=== PATIENT | male | born 1960 | race Caucasian/White ===

== ENCOUNTER 2017-03-17 13:13 | Emergency (ER) | payer SELFPAY ==
[2017-03-17 13:24] VITALS: BP 146/83
--- NOTE | 2017-03-17 13:32 | UC ---
Lower Extremity/Ankle HPI <Stephany Olivares - Last Filed: 03/17/17 13:40> - HPI Summary HPI Summary: 56 YEAR OLD MALE PRESENTS WITH COMPLAINS OF RIGHT CALF PAIN/SWELLING/ECCHYMOSIS SECONDARY TO A FALL. - History of Current Complaint Hx Obtained From: Patient Onset/Duration: Sudden Onset Severity Initially: Moderate Severity Currently: Moderate Pain Scale Used: 0-10 Numeric - 5 Aggravating Factor(s): Standing Alleviating Factor(s): Rest, Elevation Able to Bear Weight: Yes <Danilo Pitts - Last Filed: 03/17/17 14:45> - History of Current Complaint Chief Complaint: UCLowerExtremity Stated Complaint: LEG INJURY Time Seen by Provider: 03/17/17 13:30 - Allergies/Home Medications Allergies/Adverse Reactions: Allergies Allergy/AdvReac Type Severity Reaction Status Date / Time Sulfa Antibiotics Allergy Hives Verified 03/17/17 13:25 Home Medications: Home Medications Gabapentin CAP(*) [Neurontin 300 CAP(*)] 300 mg PO BID 03/17/17 [History Confirmed 03/17/17] Ibuprofen [Advil] 200 mg PO Q6H PRN 03/17/17 [History Confirmed 03/17/17] Losartan TAB* [Cozaar TAB*] 50 mg PO DAILY 03/17/17 [History Confirmed 03/17/17] PMH/Surg Hx/FS Hx/Imm Hx Endocrine History: Other <Stephany Olivares - Last Filed: 03/17/17 13:40> Previously Healthy: Yes - Surgical History Surgical History: Yes Surgery Procedure, Year, and Place: Thyroglossyl duct removed 03/13 - Family History Known Family History: Positive: None - Social History Alcohol Use: Occasionally Substance Use Type: None Smoking Status (MU): Former Smoker <HongDanilo - Last Filed: 03/17/17 14:45> Review of Systems Constitutional: Negative Skin: Negative Eyes: Negative ENT: Negative Respiratory: Negative Cardiovascular: Negative Gastrointestinal: Negative Genitourinary: Negative Motor: Negative Neurovascular: Negative Musculoskeletal: Calf Tenderness, Other: - RIGHT CALF SWELLING/ECCHYMOSIS Neurological: Negative Psychological: Negative All Other Systems Reviewed And Are Negative: Yes <Danilo Pitts - Last Filed: 03/17/17 14:45> Physical Exam Vital Signs: Initial Vital Signs Temp 99.0 F 03/17/17 13:18 Pulse 88 03/17/17 13:18 Resp 16 03/17/17 13:18 BP 146/83 03/17/17 13:18 Pulse Ox 97 03/17/17 13:18 <Stephany Olivares - Last Filed: 03/17/17 13:40> Triage Information Reviewed: Yes Vital Signs: Initial Vital Signs Temp 37.2 C 03/17/17 13:18 Pulse 88 03/17/17 13:18 Resp 16 03/17/17 13:18 BP 146/83 03/17/17 13:18 Pulse Ox 97 03/17/17 13:18 Eye Exam: Normal ENT Exam: Normal Dental Exam: Normal Neck exam: Normal Neck: Positive: 1 Respiratory Exam: Normal Cardiovascular Exam: Normal Abdominal Exam: Normal Musculoskeletal: Positive: Edema @, Other: - RIGHT CALF SWELLING/ECCHYMOSIS Neurological Exam: Normal Psychological Exam: Normal Skin Exam: Normal <Danilo Pitts - Last Filed: 03/17/17 14:45> Lower Extremity Course/Dx - Differential Dx/Diagnosis Provider Diagnoses: RIGHT CALF SWELLING/ECCHYMOSIS <Danilo Pitts - Last Filed: 03/17/17 14:45> Discharge <Stephany Olivares - Last Filed: 03/17/17 13:40> <Danilo Pitts - Last Filed: 03/17/17 14:45> - Discharge Plan Condition: Stable Disposition: HOME Patient Education Materials: Deep Venous Thrombosis (ED), Leg Edema (ED) Referrals: No Primary Care Phys,NOPCP [Primary Care Provider] - Additional Instructions: PLEASE GO TO ER TO RULE OUT DVT.
== END 2017-03-17 13:47 | disposition home or self-care (01) ==
LOC: UCEAST 13:13
DX: M79.89 Other specified soft tissue disorders (principal); R58 Hemorrhage, not elsewhere classified; Z88.2 Allergy status to sulfonamides; Z87.891 Personal history of nicotine dependence
CPT/HCPCS: 99201; G0463

== ENCOUNTER 2017-03-17 14:24 | Emergency (ER) | payer SELFPAY ==
[2017-03-17 20:45] LABS: Hematocrit 38 % (42-52); Hemoglobin 11.9 g/dl (14.0-18.0); Mean Corpuscular HGB Conc 32 g/dl (31-36); Mean Corpuscular Hemoglobin 25 pg (27-31); Mean Corpuscular Volume 78 fL (80-94); Mean Platelet Volume 9 um3 (7.4-10.4); Red Blood Count 4.84 10^6/ul (4.0-5.4); Red Cell Distribution Width 17 % (10.5-15); White Blood Count 10.7 10^3/ul (3.5-10.8)
[2017-03-17 21:00] LABS: Albumin 4.3 g/dL (3.2-5.2); BUN/Creatinine Ratio 19.8 (8-20); Calcium 9.1 mg/dL (8.6-10.3); EGFR African American 118.3 (>60); Globulin 2.7 g/dL (2-4); Potassium 3.9 mmol/L (3.5-5.0); Total Bilirubin 0.4 mg/dL (0.2-1.0)
--- NOTE | 2017-03-17 21:15 | RAD ---
INDICATION: Right lower leg injury. TECHNIQUE: 2 views of the right lower leg were obtained. FINDINGS: There is diffuse soft tissue swelling. No fracture is seen. There are several calcific densities which project along the posterior aspect of the knee possibly representing synovial osteochondromas. IMPRESSION: 1. SOFT TISSUE SWELLING, NO FRACTURE IS SEEN. 2. 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
--- NOTE | 2017-03-17 21:46 | RAD ---
INDICATION: Right lower extremity edema. COMPARISON: There are no prior studies available for comparison. TECHNIQUE: Multiple real-time, color flow and Doppler tracings of the right lower extremity were obtained. FINDINGS: The common femoral, femoral, profunda femoral and popliteal veins all demonstrate normal compressibility, augmentation with compression and phasic response with respiration. The posterior tibial and peroneal veins demonstrate normal compressibility and augmentation with compression. IMPRESSION: NO EVIDENCE FOR DEEP VENOUS THROMBOSIS.
--- NOTE | 2017-03-17 22:12 | ED ---
Lower Extremity - HPI Summary HPI Summary: 56M presents with right leg swelling since Friday. He fell onto leg as fell into ditch. He denies any pain, numbness or tingling. He is able to ambulate without difficulty. He states that the swelling and the hardness of it concerned him. he has been keeping his leg up as much as possible which seems to decrease the swelling. he normal wears compression socks but has not been wearing them. he denies being on blood thinners or history of blood clots. - History of Current Complaint Chief Complaint: EDExtremityLower Stated Complaint: RIGHT LEG PAIN COMMING FROM CC Time Seen by Provider: 03/17/17 20:16 Pain Intensity: 0 - Allergies/Home Medications Allergies/Adverse Reactions: Allergies Allergy/AdvReac Type Severity Reaction Status Date / Time Sulfa Antibiotics Allergy Hives Verified 03/17/17 13:25 PMH/Surg Hx/FS Hx/Imm Hx Endocrine/Hematology History: Denies: Hx Anticoagulant Therapy Cardiovascular History: Reports: Hx Hypertension - Surgical History Surgery Procedure, Year, and Place: Thyroglossyl duct removed 03/13 Infectious Disease History: No Infectious Disease History: Denies: Traveled Outside the [place] in Last 30 Days - Family History Known Family History: Negative: Blood Disorder - Social History Alcohol Use: Occasionally Substance Use Type: Reports: None Smoking Status (MU): Former Smoker Review of Systems Negative: Fever Negative: Chest Pain Positive: Edema - right leg Positive: Bruising All Other Systems Reviewed And Are Negative: Yes Physical Exam Triage Information Reviewed: Yes Vital Signs On Initial Exam: Initial Vitals Temp Pulse Resp BP Pulse Ox 98.4 F 82 20 176/97 98 03/17/17 14:40 03/17/17 14:40 03/17/17 14:40 03/17/17 14:40 03/17/17 14:40 Vital Signs Reviewed: Yes Appearance: Positive: Well-Appearing Skin: Positive: Other - ecchmosysis noted on right leg Head/Face: Positive: Normal Head/Face Inspection Eyes: Positive: Normal, Conjunctiva Clear Respiratory/Lung Sounds: Positive: Clear to Auscultation, Breath Sounds Present Cardiovascular: Positive: Normal, RRR Musculoskeletal: Positive: Strength/ROM Intact - right leg, Edema Right - leg with area of harder edema on anterior kapadia, Other - good pulses, sensation grossly intact, capilary refill<2 secs. Negative: Glenn Sign Right Diagnostics - Vital Signs Vital Signs Temp Pulse Resp BP Pulse Ox 03/17/17 20:06 99.3 F 74 16 170/90 97 03/17/17 19:12 99.3 F 67 16 170/90 97 03/17/17 17:43 98.8 F 70 20 176/107 97 03/17/17 16:01 98.1 F 82 20 173/75 96 03/17/17 14:40 98.4 F 82 20 176/97 98 - Laboratory Lab Results: Lab Results 03/17/17 03/17/17 03/17/17 Range/Units 20:35 20:35 20:35 WBC 10.7 (3.5-10.8) 10^3/ul RBC 4.84 (4.0-5.4) 10^6/ul Hgb 11.9 L (14.0-18.0) g/dl Hct 38 L (42-52) % MCV 78 L (80-94) fL MCH 25 L (27-31) pg MCHC 32 (31-36) g/dl RDW 17 H (10.5-15) % Plt Count 246 (150-450) 10^3/ul MPV 9 (7.4-10.4) um3 Neut % (Auto) 64.8 (38-83) % Lymph % (Auto) 20.7 L (25-47) % Pacific % (Auto) 9.7 H (1-9) % Eos % (Auto) 3.7 (0-6) % Baso % (Auto) 1.1 (0-2) % Absolute Neuts (auto) 6.9 (1.5-7.7) 10^3/ul Absolute Lymphs (auto) 2.2 (1.0-4.8) 10^3/ul Absolute Monos (auto) 1.0 H (0-0.8) 10^3/ul Absolute Eos (auto) 0.4 (0-0.6) 10^3/ul Absolute Basos (auto) 0.1 (0-0.2) 10^3/ul Absolute Nucleated RBC 0 10^3/ul Nucleated RBC % 0 INR (Anticoag Therapy) 0.92 (0.89-1.11) APTT 26.6 (26.0-36.3) seconds Sodium 139 (133-145) mmol/L Potassium 3.9 (3.5-5.0) mmol/L Chloride 106 (101-111) mmol/L Carbon Dioxide 28 (22-32) mmol/L Anion Gap 5 (2-11) mmol/L BUN 17 (6-24) mg/dL Creatinine 0.86 (0.67-1.17) mg/dL Est GFR ( Amer) 118.3 (>60) Est GFR (Non-Af Amer) 92.0 (>60) BUN/Creatinine Ratio 19.8 (8-20) Glucose 113 H (70-100) mg/dL Calcium 9.1 (8.6-10.3) mg/dL Total Bilirubin 0.40 (0.2-1.0) mg/dL AST 16 (13-39) U/L ALT 14 (7-52) U/L Alkaline Phosphatase 80 (34-104) U/L Total Protein 7.0 (6.4-8.9) g/dL Albumin 4.3 (3.2-5.2) g/dL Globulin 2.7 (2-4) g/dL Albumin/Globulin Ratio 1.6 (1-3) Result Diagrams: 03/17/17 20:35 03/17/17 20:35 Lab Statement: Any lab studies that have been ordered have been reviewed, and results considered in the medical decision making process. - Radiology leg Xray Interpretation: Positive (See Comments) - swelling, no fx Radiology Interpretation Completed By: Radiologist - Ultrasound No standard instances Ultrasound Interpretation: No Acute Changes Ultrasound Interpretation Completed By: Radiologist Lower Extremity Course/Dx - Course Course Of Treatment: 56M presents with right leg swelling since Friday. He denies any pain, numbness or tingling. He is able to ambulate without difficulty. He states that the swelling and the hardness of it concerned him. he has been keeping his leg up as much as possible which seems to decrease the swelling. he normal wears compression socks but has not been wearing them. he denies being on blood thinners or history of blood clots. swelling and ecchymosis noted of legs. over anterior kapadia swelling is hard but is nontender so do not thing is compartment syndrome at the moment but warned of signs of such to return to ED for. u/s normal. lab work h/h lower but says has history of this. xray shows soft tissue swelling. patient understands and agrees with plan. - Diagnoses Differential Diagnosis/HQI/PQRI: Positive: Contusion, DVT, Fracture (Closed) Provider Diagnoses: Right leg swelling Discharge - Discharge Plan Condition: Good Disposition: HOME Patient Education Materials: Contusion in Adults (ED) Forms: *Work Release Referrals: No Primary Care Phys,NOPCP [Primary Care Provider] - Additional Instructions: Take Tylenol or ibuprofen every 6 hours as needed for pain Apply ice, rest, elevate Place compression on area Follow up with primary care physician within 5 days Return to ED if develop numbness, tingling, severe pain, or any new or worsening symptoms
[2017-03-17 22:38] VITALS: BP 165/92
== END 2017-03-17 22:36 | disposition home or self-care (01) ==
LOC: ED 14:24
DX: M79.604 Pain in right leg (principal); Z87.891 Personal history of nicotine dependence
CPT/HCPCS: 36415; 80053; 85025; 85610; 85730; 99281